=== PATIENT | male | born 1980 | race Caucasian/White ===

== ENCOUNTER → 2019-08-15 09:19 | Outpatient (CLI) | payer OTHER, SELFPAY ==
--- NOTE | 2019-08-15 09:36 | RAD_ITS ---
STUDY: X-RAY - RIGHT KNEE REASON FOR EXAM: Male, 39 years old. Pain TECHNIQUE: 4 view(s) of the knee. COMPARISON: None. FINDINGS: There is no evidence of fracture or dislocation. There are no significant degenerative changes. There are no radiodense foreign bodies. There is mild anterior knee soft tissue swelling. RAD/Knee 4 or More Views IMPRESSION: No fracture or dislocation. Mild anterior knee soft tissue swelling. Electronically Signed: Leeroy Garcia, at 21:40 EST Tel , Service support ,
== END ==
DX: M25.561 Pain in right knee (principal)
CPT/HCPCS: 73564